=== PATIENT | male | born 1970 | race Two or more races ===

== ENCOUNTER 2019-05-21 23:07 | Emergency (ER) | payer MEDICAID ==
[~2019-05-21] VITALS: Ht 167.6 cm; Wt 65.8 kg
[2019-05-21 23:30] VITALS: BP 99/56
--- NOTE | 2019-05-21 23:30 | NUR ---
ED Nurse Note: PT AMBULATED TO ED FROM HOME C/O 08/20 SHARP SHOOTING PAIN DOWN BOTH LEGS MAINLY ON R SIDE. pT IS A&OX4, VSS
[2019-05-21] MEDS ORDERED: ATARAX25 MG ORAL (23:31)
[2019-05-21] MEDS ORDERED: ZYPREXA10 MG ORAL (23:31)
[2019-05-21] MEDS ORDERED: QUETIAPINE FUMA50 MG ORAL (23:31)
[2019-05-22] MEDS ORDERED: BACLOFEN5 MG PO (00:25)
--- NOTE | 2019-05-22 00:26 | Emergency Room Report ---
History of Present Illness General Chief Complaint: Pain Source: Patient Present Illness HPI This a 48-year-old male with psychiatric history of bipolar, anxiety. He was recently started on Zyprexa and Seroquel. He had a history of right leg spasm and cramping pain before. But got much worse since he is taking the new medication. Woke him up in the middle night with spasm. Usually after taking his medication. Denies any trauma. No fever chills. No back pain. Unable to sleep because of it. Denies any other complaint. Allergies: Coded Allergies: TETRACYCLINES (Verified Allergy, Unknown, 05/21/19) Patient History Past Medical History: see triage record, old chart reviewed, psych hx Past Surgical History: none Pertinent Family History: none Social History: Denies: smoking Immunizations: other Reviewed Nursing Documentation: PMH: Agreed; PSxH: Agreed Nursing Documentation-PMH History Of Psychiatric Problem: Yes Review of Systems Eye: Denies: eye pain, blurred vision ENT: Denies: ear pain, nose congestion, throat swelling Respiratory: Denies: cough, shortness of breath Cardiovascular: Denies: chest pain, palpitations Gastrointestinal: Denies: abdominal pain, diarrhea, nausea, vomiting Musculoskeletal: Reports: muscle pain; Denies: back pain, joint pain Skin: Denies: rash Neurological: Denies: headache, numbness Endocrine: Denies: increased thirst, increased urine Hematologic/Lymphatic: Denies: easy bruising All Other Systems: negative except mentioned in HPI Physical Exam Vital Signs Date Time Temp Pulse Resp B/P (MAP) Pulse Ox O2 Delivery O2 Flow Rate FiO2 05/21/19 23:24 97.9 66 16 99/56 (70) 98 Room Air Vitals normal Sp02 EP Interpretation: reviewed, normal General Appearance: well appearing, no apparent distress, alert Head: normocephalic, atraumatic Eyes: bilateral eye PERRL, bilateral eye EOMI ENT: hearing grossly normal, normal pharynx Neck: full range of motion, supple, no meningismus Respiratory: chest non-tender, lungs clear, normal breath sounds Cardiovascular #1: regular rate, rhythm, no murmur Gastrointestinal: normal bowel sounds, non tender, no mass, no organomegaly, no bruit, non-distended Musculoskeletal: back normal, gait/station normal, normal range of motion Psychiatric: mood/affect normal Medical Decision Making Diagnostic Impression: Primary Impression: Muscle spasm of right leg ER Course Patient with spasm of right leg. This may be secondary to worsening effect of the Zyprexa. Will cut down the dosing. No suicidal thoughts homicidal thought. No criteria for 5150. Last Vital Signs Date Time Temp Pulse Resp B/P (MAP) Pulse Ox O2 Delivery O2 Flow Rate FiO2 05/21/19 23:30 97.9 76 16 99/56 98 Room Air Status: unchanged Disposition: HOME, SELF-CARE Condition: Stable Scripts Baclofen (Baclofen) 5 Mg Tablet 5 MG PO Q8HR for spasm, #21 TAB Prov: Chau Reynolds MD 05/22/19 Additional Instructions: Cut down your Zyprexa to 5 mg. If this does not improve the leg spasm, may need to switch to a different medication. Follow-up with your doctor in 7 days for this. Return if worse. Chau Reynolds MD May 22, 2019 00:25
[2019-05-22 00:30] VITALS: BP 99/56
--- NOTE | 2019-05-22 00:30 | NUR ---
ER DISCHARGE NOTE: Patient is cleared to be discharged per ERMD, pt is aox4, on room air, with stable vital signs. pt was given dc and prescription instructions, pt was able to verbalize understanding, pt id band removed. pt is able to ambulate with steady gait. pt took all belongings.
== END 2019-05-22 00:30 | disposition home or self-care (01) ==
LOC: EMR 05-22 00:20
DX: M62.838 Other muscle spasm (principal); M79.604 Pain in right leg; Z88.1 Allergy status to other antibiotic agents
CPT/HCPCS: 99282